=== PATIENT | female | born 1935 | race Asian ===

== ENCOUNTER 2016-07-05 12:16 | Outpatient (CLI) | payer OTHER, BC ==
[2016-07-05] MEDS ORDERED: FORTAMET1000 MG PO (17:49)
[2016-07-05] MEDS ORDERED: SIMV20TA2 PO (17:52)
[2016-07-05] MEDS ORDERED: GLIM4TAB PO (17:53)
[2016-07-06] MEDS ORDERED: JANUVIA100 MG PO (15:04)
[2016-07-06] MEDS ORDERED: UNITH DIRECT112 MCG PO (15:05)
== END 2016-07-05 12:19 | disposition short-term general hospital (02) ==
LOC: AMB 12:16
DX: R41.82 Altered mental status, unspecified (principal)
CPT/HCPCS: A0425; A0427

== ENCOUNTER 2016-07-05 12:26 | Inpatient (IN) | payer OTHER, BC ==
[~2016-07-05] VITALS: Ht 167.6 cm; Wt 90.0 kg
[2016-07-05 12:22] VITALS: BP 186/97; TEMP 98.1
[2016-07-05 13:38] LABS: PLATELET COUNT 184 K/uL (152-353)
[2016-07-05 13:58] LABS: POTASSIUM 3.8 mmol/L (3.6-5.2)
[2016-07-05 16:04] VITALS: BP 186/97
[2016-07-05] MEDS ORDERED: FORTAMET1000 MG PO (17:49)
[2016-07-05] MEDS ORDERED: SIMV20TA2 PO (17:52)
[2016-07-05] MEDS ORDERED: GLIM4TAB PO (17:53)
[2016-07-05 18:10] VITALS: BP 196/89; TEMP 97.7; Ht 167.6 cm; Wt 90.0 kg
[2016-07-05 20:00] VITALS: BP 159/73; TEMP 97.8
[2016-07-06] VITALS: BP 149/69; TEMP 97.8
[2016-07-06 04:00] VITALS: BP 109/58; TEMP 98.2
[2016-07-06 08:00] VITALS: BP 96/73; TEMP 98.1
[2016-07-06 08:42] LABS: PLATELET COUNT 185 K/uL (152-353)
[2016-07-06 08:52] LABS: POTASSIUM 3.3 mmol/L (3.6-5.2)
[2016-07-06 12:00] VITALS: BP 173/86; TEMP 98.6
[2016-07-06] MEDS ORDERED: JANUVIA100 MG PO (15:04)
[2016-07-06] MEDS ORDERED: UNITH DIRECT112 MCG PO (15:05)
[2016-07-06 16:00] VITALS: BP 158/61; TEMP 98.4
[2016-07-06 20:00] VITALS: BP 151/60; TEMP 98.8
[2016-07-07] VITALS: BP 133/59; TEMP 97.6
[2016-07-07 04:00] VITALS: BP 164/81; TEMP 97.9
[2016-07-07 04:24] LABS: POTASSIUM 4.1 mmol/L (3.6-5.2)
[2016-07-07 04:31] LABS: PLATELET COUNT 175 K/uL (152-353)
[2016-07-07 08:00] VITALS: BP 164/74; TEMP 98.1
[2016-07-07 12:00] VITALS: BP 184/77; TEMP 97.7
[2016-07-07 15:51] VITALS: BP 151/54; TEMP 97.5
[2016-07-07 19:38] VITALS: BP 174/68; TEMP 98
[2016-07-08] VITALS: BP 175/77; TEMP 98.2
[2016-07-08 04:00] VITALS: BP 168/80; TEMP 98.1
[2016-07-08 06:46] LABS: PLATELET COUNT 181 K/uL (152-353)
[2016-07-08 07:08] LABS: POTASSIUM 3.3 mmol/L (3.6-5.2)
[2016-07-08 08:00] VITALS: BP 160/82; TEMP 98
[2016-07-08 12:00] VITALS: BP 157/57; TEMP 97.5
[2016-07-08 16:00] VITALS: BP 163/78; TEMP 98.1
[2016-07-08 20:00] VITALS: BP 142/83; BP 169/69; TEMP 98.1; TEMP 99.4
[2016-07-09 00:18] VITALS: BP 131/62; TEMP 98.1
[2016-07-09 04:00] VITALS: BP 191/88; TEMP 98.3
[2016-07-09 05:44] LABS: PLATELET COUNT 192 K/uL (152-353)
[2016-07-09 06:03] LABS: POTASSIUM 3.6 mmol/L (3.6-5.2)
[2016-07-09 07:57] VITALS: BP 155/63; TEMP 98.3
[2016-07-09 12:00] VITALS: BP 153/57; TEMP 98.3
[2016-07-09 16:00] VITALS: BP 147/67; TEMP 99
[2016-07-09 20:00] VITALS: BP 167/85; TEMP 98.3
[2016-07-10] VITALS: BP 180/71; TEMP 97.9
[2016-07-10 04:00] VITALS: BP 161/66; TEMP 97.5
[2016-07-10 07:52] LABS: PLATELET COUNT 181 K/uL (152-353)
[2016-07-10 08:00] VITALS: BP 158/65; TEMP 97.7
[2016-07-10 08:06] LABS: POTASSIUM 3.5 mmol/L (3.6-5.2)
[2016-07-10 12:12] VITALS: BP 166/63; TEMP 97.6
[2016-07-10 16:00] VITALS: BP 158/70; TEMP 97.8
[2016-07-10 20:00] VITALS: BP 187/86; TEMP 97.4
[2016-07-11] VITALS: BP 137/65; TEMP 98.1
[2016-07-11 04:00] VITALS: BP 181/92; TEMP 97.5
[2016-07-11 05:20] LABS: PLATELET COUNT 122 K/uL (152-353)
[2016-07-11 05:48] LABS: POTASSIUM 4.1 mmol/L (3.6-5.2)
[2016-07-11 08:00] VITALS: BP 158/69; TEMP 97.9
[2016-07-11 12:00] VITALS: BP 189/84; TEMP 97.7
[2016-07-11 16:00] VITALS: BP 197/87; TEMP 97.8
[2016-07-11 20:00] VITALS: BP 157/77; TEMP 97.8
[2016-07-12 00:13] VITALS: BP 168/77; TEMP 97.8
[2016-07-12 04:00] VITALS: BP 154/79; TEMP 97.6
[2016-07-12 05:36] LABS: PLATELET COUNT 204 K/uL (152-353)
[2016-07-12 05:56] LABS: POTASSIUM 3.5 mmol/L (3.6-5.2)
[2016-07-12 08:00] VITALS: BP 159/63; TEMP 97.8
[2016-07-12 12:00] VITALS: BP 151/68; TEMP 97.7
[2016-07-12 16:00] VITALS: BP 154/68; TEMP 98
[2016-07-12 20:17] VITALS: BP 160/62; TEMP 98.2
[2016-07-13] VITALS: BP 172/64; TEMP 98.1
[2016-07-13 04:00] VITALS: BP 181/80; TEMP 97.5
[2016-07-13 05:38] LABS: PLATELET COUNT 228 K/uL (152-353)
[2016-07-13 05:49] LABS: POTASSIUM 3.6 mmol/L (3.6-5.2)
[2016-07-13 08:00] VITALS: BP 186/66; TEMP 97.6
[2016-07-13 12:00] VITALS: BP 188/62; TEMP 98
[2016-07-13 16:00] VITALS: BP 178/64; TEMP 98.7
[2016-07-13 20:00] VITALS: BP 155/74; TEMP 97.4
[2016-07-14] VITALS: BP 187/66; TEMP 97.4
[2016-07-14 04:00] VITALS: BP 177/60; TEMP 97.5
[2016-07-14 05:51] LABS: PLATELET COUNT 236 K/uL (152-353)
[2016-07-14 06:11] LABS: POTASSIUM 3.6 mmol/L (3.6-5.2)
[2016-07-14 08:00] VITALS: BP 174/66; TEMP 98
[2016-07-14 12:00] VITALS: BP 151/71; TEMP 98
[2016-07-14 16:00] VITALS: BP 171/93; TEMP 98.1
[2016-07-14 20:00] VITALS: BP 163/72; TEMP 97.5
[2016-07-15] VITALS: BP 164/60; TEMP 97.5
[2016-07-15 04:00] VITALS: BP 133/54; TEMP 97.5
[2016-07-15 05:05] LABS: PLATELET COUNT 242 K/uL (152-353)
[2016-07-15 05:21] LABS: POTASSIUM 3.8 mmol/L (3.6-5.2)
[2016-07-15 08:00] VITALS: BP 142/55; TEMP 97.4
[2016-07-15 11:28] VITALS: BP 116/97; TEMP 98
[2016-07-15 16:00] VITALS: BP 144/54; TEMP 98.1
[2016-07-15 20:00] VITALS: BP 162/57; TEMP 97.6
[2016-07-16] VITALS: BP 186/80; TEMP 97.7
[2016-07-16 04:00] VITALS: BP 154/63; TEMP 97.3
[2016-07-16 04:47] LABS: PLATELET COUNT 187 K/uL (152-353)
[2016-07-16 05:01] LABS: POTASSIUM 4.2 mmol/L (3.6-5.2)
[2016-07-16 08:00] VITALS: BP 184/66; TEMP 98.1
[2016-07-16 12:00] VITALS: BP 172/60; TEMP 98
[2016-07-16 16:00] VITALS: BP 147/73; BP 189/86; TEMP 97.9; TEMP 98.3
[2016-07-16 20:28] VITALS: BP 181/71; TEMP 98
[2016-07-17 00:15] VITALS: BP 133/70; TEMP 97.5
[2016-07-17 04:00] VITALS: BP 182/65; TEMP 97.6
[2016-07-17 04:47] LABS: PLATELET COUNT 254 K/uL (152-353)
[2016-07-17 05:03] LABS: POTASSIUM 3.8 mmol/L (3.6-5.2)
[2016-07-17 07:50] VITALS: BP 158/71; TEMP 98
[2016-07-17 12:00] VITALS: BP 180/60; TEMP 97.8
[2016-07-17 16:00] VITALS: BP 172/84; TEMP 97.9
[2016-07-17 20:00] VITALS: BP 194/84; TEMP 98.8
[2016-07-18] VITALS: BP 96/41; TEMP 97.9
[2016-07-18 04:00] VITALS: BP 165/59; TEMP 97.7
[2016-07-18 05:19] LABS: PLATELET COUNT 231 K/uL (152-353)
[2016-07-18 05:46] LABS: POTASSIUM 3.9 mmol/L (3.6-5.2)
[2016-07-18 08:22] VITALS: BP 151/69; TEMP 98.3
[2016-07-18 12:08] VITALS: BP 119/59; TEMP 97.6
[2016-07-18 16:00] VITALS: BP 155/58; TEMP 97.7
[2016-07-18 20:00] VITALS: BP 156/59; TEMP 98.4
[2016-07-19] VITALS: BP 160/84; TEMP 99
[2016-07-19 04:00] VITALS: BP 162/58; TEMP 98.4
[2016-07-19 05:22] LABS: PLATELET COUNT 232 K/uL (152-353)
[2016-07-19 05:26] LABS: POTASSIUM 3.9 mmol/L (3.6-5.2)
[2016-07-19 08:00] VITALS: BP 155/64; TEMP 98
[2016-07-19 12:00] VITALS: BP 157/99; TEMP 98
[2016-07-19 16:00] VITALS: BP 150/98; TEMP 97.8
[2016-07-19 20:00] VITALS: BP 144/64; TEMP 98.9
[2016-07-20 00:27] VITALS: BP 113/68; TEMP 98.4
[2016-07-20 04:00] VITALS: BP 160/60; TEMP 98.2
[2016-07-20 05:32] LABS: PLATELET COUNT 170 K/uL (152-353)
[2016-07-20 05:49] LABS: POTASSIUM 3.8 mmol/L (3.6-5.2)
[2016-07-20 08:00] VITALS: BP 156/70; TEMP 97.8
[2016-07-20 12:00] VITALS: BP 148/64; TEMP 98
[2016-07-20 16:00] VITALS: BP 123/46; TEMP 97.8
[2016-07-20 20:00] VITALS: BP 164/73; TEMP 98.1
[2016-07-21] VITALS: BP 146/59; TEMP 98.1
[2016-07-21 04:00] VITALS: BP 141/62; TEMP 98.1
[2016-07-21 05:36] LABS: PLATELET COUNT 257 K/uL (152-353)
[2016-07-21 05:41] LABS: POTASSIUM 3.8 mmol/L (3.6-5.2)
[2016-07-21 08:00] VITALS: BP 148/78; TEMP 98.3
[2016-07-21 12:00] VITALS: BP 136/64; TEMP 98
[2016-07-21 16:00] VITALS: BP 136/64; TEMP 97.6
[2016-07-21 19:59] VITALS: BP 153/73; TEMP 98.2
[2016-07-22] VITALS: BP 124/51; TEMP 98.3
[2016-07-22 04:00] VITALS: BP 124/51; BP 129/52; TEMP 98.1; TEMP 98.3
[2016-07-22 07:59] VITALS: BP 135/66; TEMP 97.4
[2016-07-22 12:00] VITALS: BP 143/55; TEMP 98.4
[2016-07-22 16:00] VITALS: BP 151/65; TEMP 97.6
[2016-07-22 20:10] VITALS: BP 135/76; TEMP 98.2
[2016-07-23 00:14] VITALS: BP 145/56; TEMP 98.1
[2016-07-23 04:00] VITALS: BP 129/58; TEMP 97.9
[2016-07-23 06:12] LABS: PLATELET COUNT 284 K/uL (152-353)
[2016-07-23 08:22] VITALS: BP 134/54; TEMP 98.3
[2016-07-23 11:56] VITALS: BP 102/76; TEMP 97.8
[2016-07-23 16:23] VITALS: BP 146/80; TEMP 98
[2016-07-23 20:00] VITALS: BP 141/64; TEMP 97.9
[2016-07-24] VITALS: BP 120/56; TEMP 98.3
[2016-07-24 04:00] VITALS: BP 150/88; TEMP 97.9
[2016-07-24 04:20] LABS: PLATELET COUNT 258 K/uL (152-353)
[2016-07-24 04:30] LABS: POTASSIUM 3.9 mmol/L (3.6-5.2)
[2016-07-24 08:00] VITALS: BP 142/64; TEMP 97.8
[2016-07-24 12:00] VITALS: BP 129/64; TEMP 98
[2016-07-24 16:00] VITALS: BP 140/72; TEMP 97.9
[2016-07-24 20:00] VITALS: BP 136/51; TEMP 97.7
[2016-07-25] VITALS: BP 140/65; TEMP 98.2
[2016-07-25 04:00] VITALS: BP 141/62; TEMP 97.9
[2016-07-25 04:51] LABS: PLATELET COUNT 259 K/uL (152-353)
[2016-07-25 04:58] LABS: POTASSIUM 3.8 mmol/L (3.6-5.2)
[2016-07-25 08:00] VITALS: BP 122/50; TEMP 98
[2016-07-25 12:00] VITALS: BP 132/60; TEMP 98
[2016-07-25 16:00] VITALS: BP 132/60; TEMP 98
[2016-07-25 20:00] VITALS: BP 135/57; TEMP 98.2
[2016-07-26 00:19] VITALS: BP 135/69; TEMP 97.9
[2016-07-26 04:00] VITALS: BP 143/57; TEMP 97.9
[2016-07-26 05:08] LABS: POTASSIUM 3.6 mmol/L (3.6-5.2)
[2016-07-26 05:28] LABS: PLATELET COUNT 210 K/uL (152-353)
[2016-07-26 07:54] VITALS: BP 146/58; TEMP 97.8
[2016-07-26 11:45] VITALS: BP 151/68; TEMP 98
[2016-07-26 15:59] VITALS: BP 148/76; TEMP 97.9
== END 2016-07-26 15:56 | disposition home or self-care (01) | DRG 948 ==
LOC: ED 12:26 → MED/SURG 15:58
PROVIDERS: Emergency Medicine; Internal Medicine; ADMIT Specialist
DX: R41.82 Altered mental status, unspecified (principal); N39.0 Urinary tract infection, site not specified; F03.90 Unspecified dementia, unspecified severity, without behavioral disturbance, psychotic disturbance, mood disturbance, and anxiety; R53.1 Weakness; E03.8 Other specified hypothyroidism; M15.8 Other polyosteoarthritis; E11.9 Type 2 diabetes mellitus without complications; Z79.4 Long term (current) use of insulin; B96.20 Unspecified Escherichia coli [E. coli] as the cause of diseases classified elsewhere
CPT/HCPCS: 36415; 36591; 80048; 80053; 81000; 82550; 82553; 82948; 83605; 83735; 83880; 84100; 84443; 84484; 85027; 87040; 87077; 87086; 87088; 87186; 93005; 96361; 96372; 96374; 99220; 99284; G0378; J1100; J1650; J1815; J2405; J3475; J3490

== ENCOUNTER 2016-08-05 10:00 | Outpatient (CLI) | payer OTHER, BC ==
[~2016-08-05 10:00] MED LIST: FORTAMET1000 MG PO; GLIM4TAB PO; JANUVIA100 MG PO; SIMV20TA2 PO; UNITH DIRECT112 MCG PO
[2016-08-05 10:48] LABS: PLATELET COUNT 350 K/uL (152-353)
[2016-08-05 10:58] LABS: POTASSIUM 4.7 mmol/L (3.6-5.2)
== END 2016-08-05 19:20 | disposition home or self-care (01) ==
LOC: LAB 10:00
PROVIDERS: Internal Medicine
DX: E11.9 Type 2 diabetes mellitus without complications (principal)
CPT/HCPCS: 80053; 80061; 83036; 84443; 85027

== ENCOUNTER 2016-08-06 11:32 | Outpatient (CLI) | payer OTHER, BC | END 2016-08-06 12:30 | disposition home or self-care (01) | LOC: LAB 11:32 | DX: E11.9 Type 2 diabetes mellitus without complications (principal) | CPT/HCPCS: 81000; 82043; 82570 ==

== ENCOUNTER 2016-08-23 12:56 | Outpatient (CLI) | payer OTHER, BC | END 2016-08-23 19:04 | disposition home or self-care (01) | LOC: LAB 12:56 | DX: D64.9 Anemia, unspecified (principal) | CPT/HCPCS: 82607; 82728; 83540; 83550 ==

== ENCOUNTER 2016-08-29 13:03 | Outpatient (CLI) | payer OTHER, BC | END 2016-08-29 19:19 | disposition home or self-care (01) | LOC: LAB 13:03 | DX: R82.99 Other abnormal findings in urine (principal) | CPT/HCPCS: 81000; 87086; 87088 ==

== ENCOUNTER 2016-09-16 13:19 | Outpatient (CLI) | payer OTHER, BC ==
[2016-09-17] MEDS ORDERED: MULTIVITAMI1 PO (01:57)
[2016-09-17] MEDS ORDERED: ASCO500T18 PO (01:57)
[2016-09-17] MEDS ORDERED: ZINC SULFATE220 MG PO (01:58)
[2016-09-17] MEDS ORDERED: TRAM50TA PO (01:59)
[2016-09-17] MEDS ORDERED: INSUINJ20 SC (02:00)
[2016-09-17] MEDS ORDERED: SERT100T PO (04:55)
== END 2016-09-16 13:29 | disposition short-term general hospital (02) ==
LOC: AMB 13:19
DX: R41.82 Altered mental status, unspecified (principal)
CPT/HCPCS: A0425; A0429

== ENCOUNTER 2016-09-16 13:29 | Emergency (ER) | payer OTHER, BC ==
[~2016-09-16] VITALS: Ht 167.6 cm; Wt 89.8 kg
[2016-09-16 16:14] LABS: POTASSIUM 4.1 mmol/L (3.6-5.2)
[2016-09-17 01:13] VITALS: BP 162/82; TEMP 97.9
[2016-09-17] MEDS ORDERED: MULTIVITAMI1 PO (01:57)
[2016-09-17] MEDS ORDERED: ASCO500T18 PO (01:57)
[2016-09-17] MEDS ORDERED: ZINC SULFATE220 MG PO (01:58)
[2016-09-17] MEDS ORDERED: TRAM50TA PO (01:59)
[2016-09-17] MEDS ORDERED: INSUINJ20 SC (02:00)
[2016-09-17] MEDS ORDERED: SERT100T PO (04:55)
== END 2016-09-17 01:13 | disposition still patient (30) ==
LOC: ED 13:29
PROVIDERS: Specialist
DX: F91.8 Other conduct disorders (principal); F03.91 Unspecified dementia, unspecified severity, with behavioral disturbance
CPT/HCPCS: 36415; 80048; 80307; 80320; 80329; 81000; 99285; G0479